=== PATIENT | female | born 1990 ===

== ENCOUNTER 2017-11-28 04:25 | Inpatient (IN) | payer MEDICAID, OTHER ==
[2017-11-28] MEDS ORDERED: SODIUM CHLORIDE 0.9% 50 ML 25 ML IV PRN (04:34)
[2017-11-28] MEDS ORDERED: CEFAZOLIN (PREMIX) 1 GM 1 GM/50 ML SOL IV SCH (04:45)
[2017-11-28] MEDS ORDERED: CITRIC ACID/SODIUM CITRATE SOL PO SCH (04:45)
[2017-11-28] MEDS: LACTATED RINGERS 1,000 ML IV SCH ×4 (04:45→23:04)
[2017-11-28] MEDS ORDERED: CEFAZOLIN SODIUM 1 GM PDS ONE ×3 (05:42→12:58)
[2017-11-28] MEDS ORDERED: ONDANSETRON HCL 4 MG/2 ML SOL ONE (05:42)
[2017-11-28] MEDS ORDERED: DEXAMETHASONE 20 MG/5 ML (4 MG/ML SOL) ONE (05:42)
[2017-11-28] MEDS ORDERED: OXYTOCIN 10000 MU/ML SOL ONE (05:42)
[2017-11-28] MEDS ORDERED: FENTANYL 100MCG/2ML SOL ONE (05:43)
[2017-11-28] MEDS ORDERED: MORPHINE SULFATE 0.5 MG/ML SOL ONE (05:57)
[2017-11-28] MEDS ORDERED: EPHEDRINE SULFATE 50 MG/ML SOL ONE (06:32)
[2017-11-28] MEDS ORDERED: LACTATED RINGERS 1,000 ML with OXYTOCIN 10000 MU/ML 20 MU IV ONE (06:42)
[2017-11-28] MEDS ORDERED: METHYLERGONOVINE MALEATE 0.2 MG TAB PO PRN (07:38)
[2017-11-28] MEDS ORDERED: WITCH HAZEL 1 EA PAD TOP PRN (07:38)
[2017-11-28] MEDS ORDERED: ONDANSETRON HCL 4 MG/2 ML SOL IV PRN (07:38)
[2017-11-28] MEDS ORDERED: KETOROLAC TROMETHAMINE 30 MG/ML SOL IV PRN (07:38)
[2017-11-28] MEDS ORDERED: FLEET ENEMA PR PRN (07:38)
[2017-11-28] MEDS ORDERED: BISACODYL 10 MG SUP PR PRN (07:38)
[2017-11-28] MEDS ORDERED: TEMAZEPAM 15MG 15 MG CAP PO PRN (07:38)
[2017-11-28] MEDS ORDERED: BENZOCAINE/MENTHOL 1 SPR TOP PRN (07:38)
[2017-11-28] MEDS: CEFAZOLIN (PREMIX) 1 GM 1 GM/50 ML SOL IV SCH ×2 (08:20→13:07)
[2017-11-28] MEDS: DIPHENHYDRAMINE 25 MG CAP PO PRN ×2 (08:48→22:52)
[2017-11-28] MEDS: DOCUSATE SODIUM 100 MG SGL PO SCH ×2 (08:49→21:18)
[2017-11-28] MEDS ORDERED: PROMETHAZINE HYDROCHLORIDE 25 MG/ML SOL IM PRN (11:29)
[2017-11-28] MEDS: IBUPROFEN 600 MG TAB PO PRN ×2 (15:40→21:52)
[2017-11-28] MEDS: APAP/HYDROCODONE 1 EACH TABLET PO PRN (21:18)
[2017-11-29] MEDS: IBUPROFEN 600 MG TAB PO PRN ×3 (03:45→19:42)
[2017-11-29] MEDS: APAP/HYDROCODONE 1 EACH TABLET PO PRN ×4 (08:35→22:23)
[2017-11-29] MEDS: DOCUSATE SODIUM 100 MG SGL PO SCH ×2 (08:35→20:00)
[2017-11-29] MEDS: LACTATED RINGERS 1,000 ML IV SCH (11:48)
[2017-11-30] MEDS: APAP/HYDROCODONE 1 EACH TABLET PO PRN ×3 (05:23→20:16)
[2017-11-30] MEDS: DOCUSATE SODIUM 100 MG SGL PO SCH ×2 (09:11→20:16)
[2017-11-30] MEDS: IBUPROFEN 600 MG TAB PO PRN ×2 (09:11→17:11)
[2017-12-01] MEDS: IBUPROFEN 600 MG TAB PO PRN ×2 (02:52→11:09)
[2017-12-01] MEDS: APAP/HYDROCODONE 1 EACH TABLET PO PRN (08:59)
[2017-12-01] MEDS: DOCUSATE SODIUM 100 MG SGL PO SCH (08:59)
[2017-12-01 09:37] VITALS: BP 109/71; PULSE 72; RESP 16; TEMP 98.3; O2SAT 94
== END 2017-12-01 14:50 | disposition home or self-care (01) | DRG 540 ==
LOC: OB 04:25 → EDSTATUS 06:30
PROVIDERS: ADMIT Family Medicine; ATTEND Family Medicine
PROC: 10D00Z1 Extraction of Products of Conception, Low, Open Approach (ICD-10-PCS; principal; 2017-11-28 06:00)
DX: O75.82 Onset (spontaneous) of labor after 37 completed weeks of gestation but before 39 completed weeks gestation, with delivery by (planned) cesarean section (principal); O69.81X0 Labor and delivery complicated by cord around neck, without compression, not applicable or unspecified; Z37.0 Single live birth; Z3A.39 39 weeks gestation of pregnancy
CPT/HCPCS: 36415; 59025; 85018; 99070; J0690; J1100; J2274; J2405; J2550; J2590; J3010; A6402; A9270-GY; J3490